=== PATIENT | female | born 1995 | race Caucasian/White ===

== ENCOUNTER 2017-03-03 17:28 | Emergency (ER) | payer OTHER ==
[2017-03-03 18:42] VITALS: BMI 31.2
[2017-03-03 18:45] VITALS: BP 126/78; PULSE 69; RESP 18; TEMP 98.7; O2SAT 98
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
--- NOTE | 2017-03-04 08:26 | RAD ---
PROCEDURE: Radiographs of the Left Shoulder HISTORY: shoulder pain COMPARISON: No prior. FINDINGS: BONES: No fracture. There is a circumscribed mixed sclerotic and lucent lesion in the proximal humeral meta diaphysis, eccentrically situated, with no associated periosteal reaction or bony expansion. Though its appearance is slightly atypical, this most likely represents a non-ossifying fibroma. JOINTS: Normal. Glenohumeral and acromioclavicular joints preserved. No osteoarthritis. SOFT TISSUES: Normal. OTHER FINDINGS: None. IMPRESSION: No evidence of fracture or dislocation. 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
== END 2017-03-03 21:55 | disposition home or self-care (01) ==
LOC: ED 17:28
DX: M25.512 Pain in left shoulder (principal); R51 Headache